=== PATIENT | female | born 1995 | race Hispanic/Latino ===

== ENCOUNTER → 2022-06-11 16:03 | Outpatient (CLI) | payer OTHER, SELFPAY ==
--- NOTE | 2022-06-11 16:05 | DI.US.S_ITS ---
PROCEDURE: US OB <= 14 WEEKS FETUS INDICATIONS: DATING AND VIABILITY OUTSIDE/PRIOR DATING DATA: Last menstrual period (LMP): 04/09/2022. LMP-based estimated date of delivery (BRITT): 01/14/2023. First dating scan (date and location): 06/11/2022. Estimated date of delivery (BRITT) from first dating scan: 01/08/2023. The calculations are made using the ultrasound BRITT of 01/08/2023. TECHNIQUE: Real-time scanning was performed of the fetus and maternal pelvic organs, with image documentation. Endovaginal scanning was also performed to better visualize the fetus and maternal ovaries. COMPARISON: None. FINDINGS: Embryo: [place]-rump length measuring 3 cm, gestational age 9 weeks 6 days Heart rate: 169 bpm No perigestational hemorrhage. A yolk sac is seen. Maternal organs: Ovaries are within normal limits. Probable left corpus luteum. IMPRESSION: 1. [place]iz living intrauterine at 9 weeks 6 days based on today's crown rump length. 2. No perigestational hemorrhage. We strive to produce accurate, complete, and clear reports of imaging services. To assist us in improving patient care, this report was composed using standard report templates and voice recognition software. Therefore, it may contain abnormal punctuation, insertions and/or omissions. Occasional wrong-word or sound-alike substitutions may occur. Though we review the report and make efforts to correct it, we do recommend that the report be read carefully in proper context to recognize any text inaccuracies. Dictated by: Arben Man M.D. on 06/14/2022 at 18:26 Approved by: Arben Man M.D. on 06/14/2022 at 18:28
== END ==
PROVIDERS: Referring Provider Obstetrics & Gynecology; Visit Provider Obstetrics & Gynecology
DX: Z34.01 Encounter for supervision of normal first pregnancy, first trimester (principal); Z3A.09 9 weeks gestation of pregnancy
CPT/HCPCS: 76801; 76817

== ENCOUNTER → 2022-07-02 13:42 | Outpatient (CLI) | payer OTHER, SELFPAY ==
[2022-07-02 19:49] LABS: Urine N gonorrhoeae NOT DETECTED
[2022-07-02 19:52] LABS: Urine Chlamydia NOT DETECTED
== END ==
PROVIDERS: Visit Provider Obstetrics & Gynecology
DX: Z34.01 Encounter for supervision of normal first pregnancy, first trimester (principal); Z3A.12 12 weeks gestation of pregnancy
CPT/HCPCS: 87491; 87591

== ENCOUNTER → 2022-07-02 14:53 | Outpatient (CLI) | payer OTHER, SELFPAY ==
[2022-07-02 15:36] LABS: Add Manual Diff / Slide Review NO; Basophils Absolute Auto 0 /uL (0-100); Basophils Percent Auto 0.2 % (0-2); Eosinophils Absolute Auto 0 /uL (0-450); Eosinophils Percent Auto 0.6 % (2-4); Hematocrit 36.2 % (36-46); Hemoglobin 12.3 g/dL (12.0-16.0); Lymphocytes Absolute Auto 2300 /uL (1100-4500); Lymphocytes Percent Auto 32.3 % (25-40); Mean Corpuscular Hemoglobin 30.6 PG (26-34); Mean Corpuscular Volume 89.8 fL (80-100); Monocytes Absolute Auto 500 /uL (0-900); Monocytes Percent Auto 6.9 % (3-14); Neutrophils Absolute Auto 4300 /uL (1500-7000); Platelet Count 214 X10^3/uL (150-400); Red Blood Cell Count 4.03 X10^6/uL (4.0-5.2); Red Cell Distribution Width 13.1 % (11.6-14.8); White Blood Cell Count 7.2 X10^3/uL (4.5-11.0)
[2022-07-02 15:52] LABS: Appearance Urine UA CLEAR; Bilirubin Urine UA NEGATIVE (NEGATIVE); Color Urine UA YELLOW; Glucose Urine UA NEGATIVE (Negative); Ketones Urine UA NEGATIVE (NEGATIVE); Leukocyte Esterase Urine UA NEGATIVE (NEGATIVE); Nitrite Urine UA NEGATIVE (Negative); Occult Blood Urine UA NEGATIVE (Negative); Protein Urine UA NEGATIVE (Negative); Specific Gravity Urine UA <=1.005 (1.000-1.035); Urobilinogen Urine UA 0.2 E.U./dL (0.2)
[2022-07-02 15:53] LABS: pH Urine UA 6.5 (4.5-8.0)
[2022-07-03 08:32] LABS: RPR Screen Non Reactive (Non Reactive)
[2022-07-03 10:16] LABS: Hepatitis B Surface Antigen NEGATIVE s/c (NEGATIVE)
[2022-07-03 10:33] LABS: HIV 1 & 2 Ab/Ag 4th Gen Combo NEGATIVE (NEGATIVE); Hep C Virus Ab w/Reflex Quant NEGATIVE s/c (NEGATIVE)
[2022-07-03 14:27] LABS: Rubella Antibody IgG 8.5 IU/mL (>15)
[2022-07-04 09:50] LABS: Varicella IgG Antibody 484 index (Immune >165)
== END ==
PROVIDERS: Referring Provider Obstetrics & Gynecology; Visit Provider Obstetrics & Gynecology
DX: Z34.01 Encounter for supervision of normal first pregnancy, first trimester (principal); Z3A.12 12 weeks gestation of pregnancy
CPT/HCPCS: 36415; 80055; 81003; 86787; 86803; 86850; 86900; 86901; 87086; 87389; 87491; 87591

== ENCOUNTER → 2022-07-24 08:30 | Outpatient (CLI) | payer OTHER, SELFPAY ==
[2022-07-26 19:25] LABS: AFP Value 32.9 ng/mL (.); Insulin Dep Diabetes No (.); OSBR Risk 1IN 10000 (.); Results Report (.); Test Results *Screen Negative* (.)
== END ==
PROVIDERS: Referring Provider Obstetrics & Gynecology; Visit Provider Obstetrics & Gynecology
DX: Z34.02 Encounter for supervision of normal first pregnancy, second trimester (principal); Z3A.16 16 weeks gestation of pregnancy
CPT/HCPCS: 36415; 82105

== ENCOUNTER → 2022-09-02 13:53 | Outpatient (CLI) | payer OTHER, SELFPAY ==
--- NOTE | 2022-09-02 13:56 | DI.US.S_ITS ---
PROCEDURE: US OB >= 14 WEEKS FETUS INDICATIONS: ANATOMY OUTSIDE/PRIOR DATING DATA: Last menstrual period (LMP): 04/09/2022 LMP-based estimated date of delivery (BRITT): 01/14/2023. First dating scan (date and location): 06/11/2022. Estimated date of delivery (BRITT) from first dating scan: 01/08/2023. TECHNIQUE: Real-time scanning was performed of the fetus, with image documentation and biometric measurements. COMPARISON: [facility], , OB <= 14 WEEKS FETUS, 07/02/2022, 14:36. FINDINGS: General: A single living intrauterine gestation is present. Presentation: Transverse. Placenta: Placental position is anterior , without previa. Amniotic fluid index: 16.5 cm, normal range is 5-24 cm. Single deepest vertical pocket is 6.5 cm. heart rate: 145 beats per minute. Maternal cervical canal: 4.9 cm long. Normal lower limit is 2.5 cm. biometrics: Biparietal diameter: 21 weeks 6 days Head circumference: 21 weeks 2 days Abdominal circumference: 22 weeks 1 day Femur length: 21 weeks 6 days Clinically estimated gestational age: 20 weeks 6 days Composite gestational age from present scan: 21 weeks 6 days Estimated weight and percentile: 467 g; 94th percentile Anatomic survey: Neuro: Ventricles are non-dilated at less than 10 mm. Cisterna magna is normal at 3-11 mm. Cerebellum is normal in size and morphology. Nuchal skin fold: Normal at less than 6 mm between 14-21 weeks gestational age. Face: Nose and lips, facial profile are normal. Spine: No evidence for spina bifida. Heart: 4-chambered heart is present, with normal ventricular outflow tracts. Diaphragm: Diaphragm is intact. Stomach: Left-sided stomach is present. Kidneys: No hydronephrosis. Normal is less than 5 mm in 2nd trimester, less than 7 mm in 3rd trimester. Cord: 3-vessel cord has orthotopic insertion. Bladder: Normal in size. Extremities: All 4 extremities identified. IMPRESSION: 1. Single living IUP redemonstrated and interval growth is upper limits of normal with estimated weight 94th percentile. 2. Normal anatomic survey. We strive to produce accurate, complete, and clear reports of imaging services. To assist us in improving patient care, this report was composed using standard report templates and voice recognition software. Therefore, it may contain abnormal punctuation, insertions and/or omissions. Occasional wrong-word or sound-alike substitutions may occur. Though we review the report and make efforts to correct it, we do recommend that the report be read carefully in proper context to recognize any text inaccuracies. Dictated by: Clifford MUNSON Interpreted: Chad Clinton MD on 09/02/2022 at 16:44 Transcribed by: ARMANDO on 09/02/2022 at 16:46 Approved by: Chad Clinton M.D. on 09/03/2022 at 8:49
== END ==
PROVIDERS: PCP Student in an Organized Health Care Education/Training Program; Referring Provider Obstetrics & Gynecology; Visit Provider Obstetrics & Gynecology
DX: Z34.02 Encounter for supervision of normal first pregnancy, second trimester (principal); Z3A.21 21 weeks gestation of pregnancy
CPT/HCPCS: 76811

== ENCOUNTER 2022-09-17 22:33 | Emergency (ER) | payer OTHER, SELFPAY ==
[2022-09-17] VITALS (8 sets, daily range): BP systolic 123–181; BP diastolic 86–104; PULSE 89–108; RESP 10–25; TEMP 37.2; O2SAT 95–99
[2022-09-17 23:26] LABS: Alanine Aminotransferase 30 IU/L (<35); Albumin 3.5 g/dL (3.5-5.0); Albumin Globulin Ratio 0.9 (1.0-2.8); Alkaline Phosphatase 75 U/L (38-126); Aspartate Aminotransferase 28 IU/L (14-36); BUN Creatinine Ratio 20.4 (6-22); Bilirubin Total 0.2 mg/dL (0.2-1.3); Blood Urea Nitrogen 10 mg/dL (7-17); Calcium 8.8 mg/dL (8.4-10.2); Carbon Dioxide 24 mmol/L (22-32); Chloride 103 mmol/L (98-107); Estimated Glomerular Filt Rate > 60 mL/min (>60); Globulin 3.7 g/dL (1.7-4.1); Glucose 97 mg/dL (70-100); HEMOLYSIS < 15 (0-50); Potassium 3.2 mmol/L (3.4-5.1); Sodium 133 mmol/L (137-145); Total Protein 7.2 g/dL (6.3-8.2)
[2022-09-17 23:41] LABS: Add Manual Diff / Slide Review NO; Basophils Absolute Auto 0 /uL (0-100); Basophils Percent Auto 0.3 % (0-2); Eosinophils Absolute Auto 100 /uL (0-450); Eosinophils Percent Auto 0.6 % (2-4); Hematocrit 35.6 % (36-46); Lymphocytes Absolute Auto 3300 /uL (1100-4500); Lymphocytes Percent Auto 30.5 % (25-40); Mean Corpuscular HGB Conc 33.8 % (30-36); Mean Corpuscular Hemoglobin 30.4 PG (26-34); Mean Corpuscular Volume 90.1 fL (80-100); Monocytes Absolute Auto 800 /uL (0-900); Neutrophils Absolute Auto 6700 /uL (1500-7000); Neutrophils Percent Auto 61.6 % (50-75); Platelet Count 202 X10^3/uL (150-400); Red Blood Cell Count 3.95 X10^6/uL (4.0-5.2); Red Cell Distribution Width 13.6 % (11.6-14.8); White Blood Cell Count 10.9 X10^3/uL (4.5-11.0)
[2022-09-17] MEDS: SODIUM CHLORIDE 0.9% 1,000 ML 1000 ML IV (23:42)
[2022-09-17 23:44] LABS: Appearance Urine UA CLEAR; Bilirubin Urine UA NEGATIVE (NEGATIVE); Color Urine UA YELLOW; Glucose Urine UA TRACE g/dL (Negative); Ketones Urine UA NEGATIVE (NEGATIVE); Leukocyte Esterase Urine UA TRACE (NEGATIVE); Nitrite Urine UA NEGATIVE (Negative); Occult Blood Urine UA NEGATIVE (Negative); Protein Urine UA NEGATIVE (Negative); Urobilinogen Urine UA 0.2 E.U./dL (0.2)
[2022-09-17 23:48] LABS: pH Urine UA 6.5 (4.5-8.0)
[2022-09-18] VITALS: BP 129/80; PULSE 88; RESP 21; O2SAT 97
[2022-09-18 00:15] VITALS: PULSE 89; RESP 22; O2SAT 98
[2022-09-18 00:23] LABS: Bacteria Urine Few (2-10); Culture Indicated Urine Specimen Cultured; RBC Urine None Seen (0-5/HPF); Squamous Epithelial Cell Urine 10-30 /HPF (0-5/HPF); WBC Urine 0-1/HPF (0-5/HPF)
--- NOTE | 2022-09-18 00:48 | ED.SYNCOPE ---
HPI - Syncope General Chief Complaint: Syncope Stated Complaint: passed out, dosen't remember Time Seen by Provider: 09/17/22 23:30 Source: patient and family Mode of arrival: Ambulatory Limitations: no limitations History of Present Illness HPI narrative: Patient is a 27-year-old female currently 24 weeks presenting after a syncopal episode. She reports that she was sitting down talking with a friend when she felt dizzy lightheaded like she might pass out then she did briefly lose consciousness for a couple of seconds. She is no abdominal pain no vaginal bleeding. She denies any chest pain or palpitations. No fever or back pain. She denies any UTI symptoms. Related Data Home Medications Medication Instructions Recorded Confirmed prenat.vits,nita,[id number] 1 tab PO DAILY 06/09/22 08/25/22 Previous Rx's Medication Instructions Recorded cephalexin 500 mg capsule 500 mg PO BID 7 days #14 caps 09/18/22 Allergies Allergy/AdvReac Type Severity Reaction Status Date / Time carolina seeds Allergy Severe Swelling Uncoded 08/25/22 13:03 of Lip/Tongue/Throat Review of Systems Review of Systems ROS Unobtainable: All systems reviewed & are unremarkable except as noted in HPI and below Patient History Medical History Bacterial vaginosis Migraine Ovarian cyst Surgical History [place] teeth extracted Family History Mother Thyroid cancer Father Hypertension Brain aneurysm Stroke Grandmother Diabetes mellitus Grandmother Hyperlipidemia Depression Grandfather Depression Social History marital status: unmarried,single number of children: 0 household members: none lives independently: Yes housing: apartment pets and animals: No education level: college ([employer]len's degree) occupational status: employed (active duty [employer]) current occupational exposures/hazards: No (No Hazmat duties since ) special rubina needs: No seatbelt use: always water heater temp set < 120 deg: Yes working smoke detector in home: Yes fire extinguisher in home: Yes carbon monox detector in home: Yes firearms in home: No do you feel safe at home: Yes Smoking Status: Never smoker second hand exposure: No alcohol intake: former (3-6/week prior to ) substance use type: does not use during the past year weight has: remained stable well-balanced diet: rarely or never daily servings fruits/ve-1 caffeine: Yes (aware of 200mg limit) Type(s) of exercise: weight lifting frequency: 3-4 times per week Smoking Status: Never smoker Substance Use Type: does not use Exam Initial Vital Signs Initial Vital Signs: Vital Signs Temperature 99 F 09/17/22 22:40 Pulse Rate 108 H 09/17/22 22:40 Respiratory Rate 18 09/17/22 22:40 Blood Pressure 168/104 H 09/17/22 22:40 Pulse Oximetry 99 09/17/22 22:40 Oxygen Delivery Method 09/17/22 22:40 GENERAL: Alert well-appearing 27-year-old female HEENT: Head atraumatic,EOMI, pupils reactive, face symmetric, moist mucous membranes CARDIOVASCULAR: Regular rate and rhythm without murmurs, rubs or gallops. RESPIRATORY: Breath sounds equal bilaterally, no wheezes rales or rhonchi. ABDOMEN: Soft, gravid nontender s EXTREMITIES: Normal range of motion, no clubbing or edema. Neurovascularly intact NEUROLOGICAL: Alert and oriented x4.Normal gait and speech. SKIN: Warm, dry, no laceration, no petechiae, no rashes or lesions. Course Orders Ordered: ED Orders 09/17/22 23:00 CBC Auto Diff [Complete Blood Count AUTO DIFF] Stat CMP [Comprehensive Metabolic Panel] Stat 09/17/22 23:25 Urinalysis and Microscopic Stat Urine Culture Stat 09/17/22 23:30 EKG-12 Lead Stat Discontinued Medications Cefazolin Sodium (Cephalexin 250 Mg Prepack) 1 bottle MISC SEEINSTR ONE Stop: 09/18/22 01:25 Last Admin: 09/18/22 01:38 Dose: 1 bottle Documented By: DALE Sodium Chloride (Normal Saline 0.9%) 1,000 mls @ 1,000 mls/hr IV BOLUS ONE Stop: 09/18/22 00:29 Last Admin: 09/17/22 23:42 Dose: 1,000 mls/hr Documented By: BOB Vital Signs Vital signs: Vital Signs - 8 hr 09/17/22 22:40 09/17/22 22:57 09/17/22 23:00 Temperature 99 F Pulse Rate 108 H 99 H 101 H Respiratory Rate 18 23 24 Blood Pressure 168/104 H Pulse Oximetry 99 98 98 Oxygen Delivery Method Room Air 09/17/22 23:15 09/17/22 23:28 09/17/22 23:28 Temperature Pulse Rate 95 H 92 H Respiratory Rate 24 10 L Blood Pressure 123/86 Pulse Oximetry 97 97 Oxygen Delivery Method 09/17/22 23:30 09/17/22 23:31 09/17/22 23:31 Temperature Pulse Rate 97 H 89 Respiratory Rate 25 H 17 Blood Pressure 181/86 H Pulse Oximetry 95 96 Oxygen Delivery Method 09/17/22 23:45 09/18/22 00:00 09/18/22 00:00 Temperature Pulse Rate 96 H 88 Respiratory Rate 19 21 Blood Pressure 129/80 Pulse Oximetry 96 97 Oxygen Delivery Method 09/18/22 00:15 09/18/22 01:29 Temperature Pulse Rate 89 88 Respiratory Rate 22 Blood Pressure 129/80 Pulse Oximetry 98 Oxygen Delivery Method MDM - Syncope Lab Data 09/17/22 23:00 09/17/22 23:00 Labs: Lab Results 09/17/22 09/17/22 09/17/22 Range/Units 23:00 23:00 23:25 WBC 10.9 (4.5-11.0) X10^3/uL RBC 3.95 L (4.0-5.2) X10^6/uL Hgb 12.0 (12.0-16.0) g/dL Hct 35.6 L (36-46) % MCV 90.1 (80-100) fL MCH 30.4 (26-34) PG MCHC 33.8 (30-36) % RDW 13.6 (11.6-14.8) % Plt Count 202 (150-400) X10^3/uL Neut % (Auto) 61.6 (50-75) % Lymph % (Auto) 30.5 (25-40) % Coal % (Auto) 7.0 (3-14) % Eos % (Auto) 0.6 L (2-4) % Baso % (Auto) 0.3 (0-2) % Neut # (Auto) 6700 (5358-5376) /uL Lymph # (Auto) 3300 (0732-6863) /uL Coal # (Auto) 800 (0-900) /uL Eos # (Auto) 100 (0-450) /uL Baso # (Auto) 0 (0-100) /uL Sodium 133 L (137-145) mmol/L Potassium 3.2 L (3.4-5.1) mmol/L Chloride 103 (98-107) mmol/L Carbon Dioxide 24 (22-32) mmol/L BUN 10 (7-17) mg/dL Creatinine 0.49 L (0.52-1.04) mg/dL Estimated GFR > 60 (>60) mL/min BUN/Creatinine Ratio 20.4 (6-22) Glucose 97 (70-100) mg/dL Calcium 8.8 (8.4-10.2) mg/dL Total Bilirubin 0.2 (0.2-1.3) mg/dL AST 28 (14-36) IU/L ALT 30 (<35) IU/L Alkaline Phosphatase 75 (38-126) U/L Total Protein 7.2 (6.3-8.2) g/dL Albumin 3.5 (3.5-5.0) g/dL Globulin 3.7 (1.7-4.1) g/dL Albumin/Globulin Ratio 0.9 L (1.0-2.8) Urine Color Yellow Urine Appearance Clear Urine pH 6.5 (4.5-8.0) Ur Specific [place] 1.020 (1.000-1.035) Urine Protein Negative (Negative) Urine Glucose (UA) Trace H (Negative) g/dL Urine Ketones Negative (NEGATIVE) Urine Occult Blood Negative (Negative) Urine Nitrate Negative (Negative) Urine Bilirubin Negative (NEGATIVE) Urine Urobilinogen 0.2 (0.2) E.U./dL Ur Leukocyte Esterase Trace H (NEGATIVE) Urine RBC None seen (0-5/HPF) Urine WBC 0-1/hpf (0-5/HPF) Ur Squamous Epith Cells 10-30 /hpf H (0-5/HPF) Urine Bacteria Few (2-10) H (None) Ur Culture Indicated? Specimen cultured Urine Dip Bedside Urine Glucose Negative Bedside Urine Bilirubin - Negative Bedside Urine Ketone - Negative Urine Specific [place] 1.020 Bedside Urine Occult Blood - Negative Bedside Urine pH 6.0 Bedside Urine Protein - Negative Bedside Urine Urobilinogen 0.2 Bedside Urine Nitrite - Negative Bedside Urine Leukocytes - Negative Esterase ECG Data Interpretation: Sinus rhythm rate 98 ME interval 132 QRS 74 QTC 444 T-wave inversion noted in lead 3 and V2 nonspecific no ST changes no Q-waves, no prior MDM Narrative Medical decision making narrative: Patient 27-year-old female currently does have bacteria in her urine probably the cause of her syncopal episode today. She has no neurologic deficits brief loss of consciousness. No need for head CT she is awake alert and oriented. Initially mildly tachycardic with low-grade temp of 99?. Blood pressure was quite high however it decreased pretty quickly and she has a record her blood pressure earlier today of 94. Quite variable blood pressure. She is no protein in her urine I do not suspect preeclampsia this time. Now feeling much better after L of fluid. Blood work otherwise overall reassuring. No evidence sepsis. Discharge Plan Departure Patient Disposition: Home Clinical Impression: UTI (urinary tract infection) during Instructions: DI for Urinary Tract Infection (UTI) Activity Restrictions/Additional Instructions: *You have been diagnosed with UTI *What to do: Bladder infections are very common in . Please be sure to stay hydrated drink plenty of fluids and take antibiotics. *Continue to take medications as directed Keflex 500 mg twice a day for 7 days --> SENT TO THE DOD Tylenol 1000 mg every 6 hours if needed for pain or fever *Follow up with your primary care provider in 2-3 days or call [phone] *Return to ER if you should have recurrent episode of passing out fever abdominal pain vaginal bleeding cramping or any new, worsening or concerning symptoms Prescriptions: New cephalexin 500 mg capsule 500 mg PO BID 7 Days Qty: 14 0RF No Action prenat.vits,nita,[id number] Tablet 1 tab PO DAILY Referrals: Juan Manuel Alexandra DO [Primary Care Provider] - Stand Alone Forms: Patient Portal/API
[2022-09-18 01:29] VITALS: BP 129/80; PULSE 88
[2022-09-18] MEDS: cephALEXin 250 MG PREPACK 1 BOTTLE MISC (01:38)
== END 2022-09-18 01:40 | disposition home or self-care (01) ==
PROVIDERS: Emergency Provider Emergency Medicine; PCP Student in an Organized Health Care Education/Training Program
DX: O23.42 Unspecified infection of urinary tract in pregnancy, second trimester (principal); N39.0 Urinary tract infection, site not specified; R07.9 Chest pain, unspecified; Z3A.24 24 weeks gestation of pregnancy
CPT/HCPCS: 36415; 80053; 81001; 81003; 85025; 87086; 93005; 99284

== ENCOUNTER → 2022-09-22 12:03 | Outpatient (CLI) | payer OTHER, SELFPAY ==
[2022-09-22 13:54] LABS: Hematocrit 34.8 % (36-46); Hemoglobin 11.9 g/dL (12.0-16.0)
[2022-09-22 14:16] LABS: GTT (PREG) 1 Hour PP 50gm Dose 91 mg/dL (76-139)
== END ==
PROVIDERS: PCP Student in an Organized Health Care Education/Training Program; Referring Provider Obstetrics & Gynecology; Visit Provider Obstetrics & Gynecology
DX: Z34.02 Encounter for supervision of normal first pregnancy, second trimester (principal); Z3A.26 26 weeks gestation of pregnancy
CPT/HCPCS: 36415; 82950; 85014; 85018

== ENCOUNTER 2022-12-16 12:43 | Outpatient (CLI) | payer OTHER, SELFPAY ==
[2022-12-16 13:14] LABS: Appearance Urine UA CLEAR; Bilirubin Urine UA NEGATIVE (NEGATIVE); Color Urine UA YELLOW; Glucose Urine UA 1+ g/dL (Negative); Ketones Urine UA NEGATIVE (NEGATIVE); Leukocyte Esterase Urine UA 2+ (NEGATIVE); Nitrite Urine UA NEGATIVE (Negative); Occult Blood Urine UA NEGATIVE (Negative); Protein Urine UA NEGATIVE (Negative); Urobilinogen Urine UA 0.2 E.U./dL (0.2)
[2022-12-16 13:33] LABS: Bacteria Urine Occasional (0-1); Culture Indicated Urine Specimen Cultured; RBC Urine None Seen (0-5/HPF); Squamous Epithelial Cell Urine 5-10 /HPF (0-5/HPF); WBC Urine 5-10/HPF (0-5/HPF)
--- NOTE | 2022-12-16 13:40 | PM.OBTRLD ---
Visit Information Visit Information Date of evaluation: 12/16/22 Primary OB Provider: Abhijit Lincoln Reason for Evaluation: Yes rule out labor Comments/Additional reasons for admission: Patient is a 27 yo G1 at 36+5 wks EGA who has been having cramping/contractions since this AM. Denies ROM, bleeding. Contractions 03/26. Vital Signs Vital Signs: BP: 123/79 P: 110 T: 97.5F PFSH Medical History Bacterial vaginosis Migraine Ovarian cyst Surgical History [place] teeth extracted Family History Mother Thyroid cancer Father Hypertension Brain aneurysm Stroke Grandmother Diabetes mellitus Grandmother Hyperlipidemia Depression Grandfather Depression Social History marital status: unmarried,single number of children: 0 household members: none lives independently: Yes housing: apartment pets and animals: No education level: college ([employer]'s degree) occupational status: employed (active duty [employer]) current occupational exposures/hazards: No (No Hazmat duties since ) special rubina needs: No seatbelt use: always water heater temp set < 120 deg: Yes working smoke detector in home: Yes fire extinguisher in home: Yes carbon monox detector in home: Yes firearms in home: No do you feel safe at home: Yes Smoking Status: Never smoker second hand exposure: No alcohol intake: former (3-6/week prior to ) substance use type: does not use during the past year weight has: remained stable well-balanced diet: rarely or never daily servings fruits/ve-1 caffeine: Yes (aware of 200mg limit) Type(s) of exercise: weight lifting frequency: 3-4 times per week Review of Systems Review of Systems Narrative: Problem-specific ROS positives included in HPI Objective Labs Labs: Laboratory Results - last 24 hr 12/16/22 13:00 Urine Color Yellow Urine Appearance Clear Urine pH 6.0 Ur Specific [place] 1.010 Urine Protein Negative Urine Glucose (UA) 1+ H Urine Ketones Negative Urine Occult Blood Negative Urine Nitrate Negative Urine Bilirubin Negative Urine Urobilinogen 0.2 Ur Leukocyte Esterase 2+ H Urine RBC None seen Urine WBC 5-10/hpf H Ur Squamous Epith Cells 5-10 /hpf H Urine Bacteria Occasional (0-1) Ur Culture Indicated? Specimen cultured Evaluation Evaluation Baseline heart rate: 140 Variability: Moderate (11-25) monitor accelerations: Present Monitor Decelerations: Absent Contraction Frequency (minutes): 4 Uterine Contraction Intensity: Moderate Category of Tracing: Reactive Status: Category l Comments: Cervical exam not performed by nursing staff prior to discharge Diagnosis, Plan/Disposition Final Diagnosis (1) uterine contractions in third trimester, antepartum: Status: Acute Plan/Disposition Plan: Contractions seen on monitoring are largely uterine irritability with occasional palpable contractions. Offered medication to help with the pain of prodromal labor but declined by patient. Urine shows 2+ WBC; culture planted and will initiate Macrobid BID x 7 days pending C&S results. Home w/ labor instructions and follow-up as planned on 12/19 or as needed with increased contractions, show, or SROM. OB Disposition: home
== END 2022-12-16 14:00 | disposition home or self-care (01) ==
LOC: LABOR 13:39 → OB 12-19 14:24
PROVIDERS: PCP Student in an Organized Health Care Education/Training Program; Referring Provider Obstetrics & Gynecology; Visit Provider Obstetrics & Gynecology
DX: O47.03 False labor before 37 completed weeks of gestation, third trimester (principal); Z3A.36 36 weeks gestation of pregnancy
CPT/HCPCS: 59025; 81001; 87086; G0378; G0379

== ENCOUNTER → 2022-12-19 13:37 | Outpatient (CLI) | payer OTHER, SELFPAY ==
[2022-12-20 15:02] LABS: Strep Grp B PCR POS for Grp B Strep
== END ==
PROVIDERS: PCP Student in an Organized Health Care Education/Training Program; Visit Provider Obstetrics & Gynecology
DX: Z34.03 Encounter for supervision of normal first pregnancy, third trimester (principal); Z3A.37 37 weeks gestation of pregnancy
CPT/HCPCS: 87086; 87653

== ENCOUNTER → 2022-12-19 13:59 | Outpatient (CLI) | payer OTHER, SELFPAY ==
--- NOTE | 2022-12-19 14:00 | DI.US.S_ITS ---
PROCEDURE: US OB FOLLOW UP INDICATIONS: LARGE FOR GESTATIONAL AGE ON 20 WEEK ANATOMY OUTSIDE/PRIOR DATING DATA: Last menstrual period (LMP): 04/09/22 LMP-based estimated date of delivery (BRITT): 01/14/23. First dating scan (date and location): 06/11/22. Estimated date of delivery (BRITT) from first dating scan: 01/08/23. The calculations are made using the 1st BRITT of 01/08/23. TECHNIQUE: Real-time scanning was performed of the fetus, with image documentation and biometric measurements. Endovaginal scanning: Not needed COMPARISON: None. FINDINGS: General: A single living intrauterine gestation is present. Presentation: Vertex. Placenta: Placental position is anterior , without previa. Amniotic fluid index: 13.9 cm, normal range is 5-24 cm. Single deepest vertical pocket is 5.7 cm. heart rate: 141 beats per minute. Maternal cervical canal: Not visualized. biometrics: Biparietal diameter: 8.8 cm, 35 weeks 5 days Head circumference: 31.8 cm, 35 weeks 6 days Abdominal circumference: 37.7 cm, 41 weeks 5 days Femur length: 6.8 cm, 35 weeks 0 days Clinically estimated gestational age: 37 weeks 1 day Composite gestational age from present scan: 37 weeks 1 day Estimated weight and percentile: 3624 g, 93rd percentile Other: Not applicable. IMPRESSION: Current weight is 3624 g, the 93rd percentile for current gestational age. The OB ultrasound 09/02/22 had identified a 94% gestational weight at that time. Therefore, macrosomia is not anticipated by this study. No anomaly seen, delivery date projected to be centered on 01/08/23, +/-5 days. We strive to produce accurate, complete, and clear reports of imaging services. To assist us in improving patient care, this report was composed using standard report templates and voice recognition software. Therefore, it may contain abnormal punctuation, insertions and/or omissions. Occasional wrong-word or sound-alike substitutions may occur. Though we review the report and make efforts to correct it, we do recommend that the report be read carefully in proper context to recognize any text inaccuracies. Dictated by: Marco Escamilla M.D. on 12/19/2022 at 16:29 Approved by: Marco Escamilla M.D. on 12/19/2022 at 16:33
== END ==
PROVIDERS: PCP Student in an Organized Health Care Education/Training Program; Referring Provider Obstetrics & Gynecology; Visit Provider Obstetrics & Gynecology
DX: O26.843 Uterine size-date discrepancy, third trimester (principal); Z3A.37 37 weeks gestation of pregnancy
CPT/HCPCS: 76816; 87086; 87653

== ENCOUNTER → 2022-12-26 13:39 | Outpatient (CLI) | payer OTHER, SELFPAY | PROVIDERS: PCP Student in an Organized Health Care Education/Training Program; Visit Provider Obstetrics & Gynecology | DX: R82.90 Unspecified abnormal findings in urine (principal); Z34.90 Encounter for supervision of normal pregnancy, unspecified, unspecified trimester | CPT/HCPCS: 87086 ==

== ENCOUNTER → 2023-01-01 08:28 | Outpatient (CLI) | payer OTHER, SELFPAY | PROVIDERS: PCP Student in an Organized Health Care Education/Training Program; Visit Provider Obstetrics & Gynecology | DX: Z34.03 Encounter for supervision of normal first pregnancy, third trimester (principal); Z3A.39 39 weeks gestation of pregnancy | CPT/HCPCS: 87086 ==

== ENCOUNTER 2023-01-05 21:51 | Inpatient (IN) | payer OTHER, SELFPAY ==
[2023-01-05 23:13] VITALS: BP 123/74
[2023-01-06] MEDS: LACTATED RINGERS 1,000 ML 100 ML IV ×6 (01:20→20:22)
[2023-01-06] MEDS: AMPICILLIN 2,000 MG in SODIUM CHLORIDE 0.9% 100 ML 200 MG IV (01:20)
[2023-01-06 02:44] LABS: Add Manual Diff / Slide Review NO; Basophils Absolute Auto 0 /uL (0-100); Basophils Percent Auto 0.2 % (0-2); Eosinophils Absolute Auto 100 /uL (0-450); Eosinophils Percent Auto 1.3 % (2-4); Hematocrit 35.9 % (36-46); Hemoglobin 12.2 g/dL (12.0-16.0); Lymphocytes Absolute Auto 3000 /uL (1100-4500); Lymphocytes Percent Auto 32.9 % (25-40); Mean Corpuscular HGB Conc 33.9 % (30-36); Mean Corpuscular Hemoglobin 31.1 PG (26-34); Mean Corpuscular Volume 91.9 fL (80-100); Monocytes Absolute Auto 700 /uL (0-900); Monocytes Percent Auto 7.4 % (3-14); Neutrophils Absolute Auto 5300 /uL (1500-7000); Neutrophils Percent Auto 58.2 % (50-75); Platelet Count 184 X10^3/uL (150-400); Red Blood Cell Count 3.91 X10^6/uL (4.0-5.2); Red Cell Distribution Width 14.1 % (11.6-14.8)
[2023-01-06] MEDS: AMPICILLIN 1,000 MG in SODIUM CHLORIDE 0.9% 100 ML 200 MG IV ×3 (05:20→13:24)
--- NOTE | 2023-01-06 07:38 | P.HPOB_ITS ---
OB HPI Date/Time Date of admission: 01/05/23 Date Patient Seen: 01/06/23 Time Patient Seen: 07:38 History of Present Condition Chief complaint: IUP, 39+5 wks EGA, LGA, SROM, + GBS status : 1 Para: 3 Estimated Date of Delivery: 01/08/23 Estimated Gestational Age (weeks): 39+5 Narrative: Katherin Arnold is a 27 year old primigravida who presented on the evening of 01/05/2023 with spontaneous rupture membranes earlier that evening. Intravenous penicillin therapy initiated and at the time of this dictation, the patient has received 3 doses in labor. course has been largely uneventful with the exception that the infant is LGA with her most recent pelvic ultrasound on 12/19/2022 showing the 's estimated weight is 3624 g (93rd percentile). Since spontaneous rupture membranes, patient has started having more active contractions with the cervix dilated now to approximately 6 cm. Pat ient's dating is firm and she has met appropriate milestones throughout her . GBS is positive. History of Present Ultrasounds: normal 1st trimester US Obstetrical complications: other (Large for gestational age) Medical complications: none Preadmission Labs Blood type: A (+) positive -: Antibody screen: negative, GBS status: positive, HBsAG: negative, HIV: negative and RPR/VDLR: negative -: Chlamydia screen: not detected and Gonorrhea screen: not detected -: Rubella: not immune and Varicella: immune HCT: 35.9 HCAB: negative PAP: Normal Quad screen: Normal (AFP testing negative for open neural tube defect) Cell-free DNA: Low risk female infant 1 hr GTT: 91 Evaluation Evaluation Baseline heart rate: 145 Variability: Moderate (11-25) monitor accelerations: Present Monitor Decelerations: Absent Contraction Frequency (minutes): 5 Uterine Contraction Intensity: Moderate Category of Tracing: Reactive Status: Category l Dilation (cm): 6 Effacement (%): 90 Dilation: >/=5 cm Effacement: >/=80% station: -1 Position of cervix: mid Consistency: soft Baker score: 11 Non-invasive Membranes Rupture Test: positive PFSH Medical History Bacterial vaginosis Migraine Ovarian cyst Surgical History [place] teeth extracted Family History Mother Thyroid cancer Father Hypertension Brain aneurysm Stroke Grandmother Diabetes mellitus Grandmother Hyperlipidemia Depression Grandfather Depression Social History marital status: unmarried,single number of children: 0 household members: none lives independently: Yes housing: apartment pets and animals: No education level: college ([employer] degree) occupational status: employed (active duty [employer]) current occupational exposures/hazards: No (No Hazmat duties since ) special rubina needs: No seatbelt use: always water heater temp set < 120 deg: Yes working smoke detector in home: Yes fire extinguisher in home: Yes carbon monox detector in home: Yes firearms in home: No do you feel safe at home: Yes Smoking Status: Never smoker second hand exposure: No alcohol intake: former (3-6/week prior to ) substance use type: does not use during the past year weight has: remained stable well-balanced diet: rarely or never daily servings fruits/ve-1 caffeine: Yes (aware of 200mg limit) Type(s) of exercise: weight lifting frequency: 3-4 times per week Meds Home Medications and Allergies Home Medications Medication Instructions Recorded Confirmed Type prenat.vits,nita,[id number] 1 tab PO DAILY 06/09/22 01/06/23 History Allergies Allergy/AdvReac Type Severity Reaction Status Date / Time carolina seeds Allergy Severe Swelling Uncoded 01/01/23 08:02 of Lip/Tongue/Throat Review of Systems Review of Systems Narrative: Problem-specific ROS positives included in HPI OB Exam Vital signs Blood Pressure: 125/79 Pulse Rate: 97 Temperature: 97.8 F HENMT Head: normal to inspection, normocephalic and atraumatic Eyes General: appearance normal, both eyes and all related structures Resp Effort & Inspection: normal respiratory effort Auscultation: clear to auscultation bilaterally Cardio Rate: regular rate Rhythm: regular rhythm Heart Sounds: S1 normal, S2 normal and no murmurs Extremities Lower extremity: Yes normal to inspection GI Inspection: normal to inspection Palpation: Yes soft and Yes no hepatosplenomegaly External Female Exam: Yes normal external appearance Uterus Location (Fundal Height): 37 Presentation: vertex Estimated Weight (lbs): 8 Objective Labs 01/06/23 02:24 Labs: Laboratory Results - last 24 hr 01/06/23 01/06/23 02:24 02:24 WBC 9.0 RBC 3.91 L Hgb 12.2 Hct 35.9 L MCV 91.9 MCH 31.1 MCHC 33.9 RDW 14.1 Plt Count 184 Neut % (Auto) 58.2 Lymph % (Auto) 32.9 [place] % (Auto) 7.4 Eos % (Auto) 1.3 L Baso % (Auto) 0.2 Neut # (Auto) 5300 Lymph # (Auto) 3000 [place] # (Auto) 700 Eos # (Auto) 100 Baso # (Auto) 0 Blood Type A Positive Antibody Screen Negative Assessment and Plan Assessment and Plan Assessment and Plan narrative: PLAN 1. Admit for labor 2. GBS prophylaxis 3. See admission orders
[2023-01-06] MEDS: FENT 2MCG/ML BUPIV 0.125% EPI 200 MCG/100 ML PLAST..BAG 8 MCG EPIDURAL (08:01)
[2023-01-06] MEDS: OXYTOCIN PREMIX 30 UNIT/500 ML PLAST..BAG IV (08:02)
--- NOTE | 2023-01-06 12:56 | PM.OBPNLAB ---
Date/Time Date Patient Seen: 01/06/23 Time Patient Seen: 12:56 Pain Control Pain control: tolerating well and epidural Pelvic Exam Dilation (cm): 8 station: 0 Amniotic membrane status: Ruptured Comments: JACK forewatertaco, 1248 Contractions Contractions on admission: irregular Monitor mode: External Pitocin rate (mU/min): 9 Contraction frequency (min): 3 Contraction duration (min): 1 Contraction pattern: Regular Contraction phase: Resting Contraction intensity: Strong/Firm Status status: Category l Heart Rate Baseline: 145 Monitor Accelerations: Episodic Monitor Decelerations: Absent Monitor Variability: Moderate Assessment and Plan Assessment: active labor Plan: continuous present management Comments: ELINA providing some slightly improved relief with higher basal rate but will ask anesthesia to re-evaluate for possible replacement if indicated. Anticipate transition to 2nd stage shortly and .
[2023-01-06 13:20] VITALS: BP 125/79; PULSE 97; TEMP 36.6
[2023-01-06] MEDS: FENT 2MCG/ML BUPIV 0.125% EPI 200 MCG/100 ML PLAST..BAG 12 MCG EPIDURAL (13:25)
--- NOTE | 2023-01-06 17:30 | P.PNOB_ITS ---
Date/Time Date Patient Seen: 01/06/23 Time Patient Seen: 17:30 Pain Control Pain control: tolerating well and epidural Pelvic Exam Dilation (cm): 10 Effacement (%): 100 station: +2 Amniotic membrane status: Ruptured Contractions Contractions on admission: none Monitor mode: External Pitocin rate (mU/min): 8 Contraction frequency (min): 3 Contraction duration (min): 1 Contraction pattern: Regular Contraction phase: Resting Contraction intensity: Moderate Status status: Category l Heart Rate Baseline: 165 Monitor Accelerations: Present Monitor Decelerations: Early and Variable Monitor Variability: Minimal Assessment and Plan Assessment: active labor Plan: other (See below) Comments: Patient has been pushing ineffectively x 90 minutes and baseline has risen to 165. No maternal fever. Vertex is +1-2. Will stop pitocin due to t achysystole and reassess re: options for delivery. Dr. Bates is assuming call responsibilities overnight and she was briefed on patient's history as well as her clinical course thus far in labor.
--- NOTE | 2023-01-06 18:32 | PM.OBPNLAB ---
Date/Time Date Patient Seen: 01/06/23 Time Patient Seen: 18:32 Pain Control Pain control: other (Patient very uncomfortable with contractions) Pelvic Exam Dilation (cm): 10 Effacement (%): 100 station: 0 (without pushing, head back to 0 station) Amniotic membrane status: Ruptured Contractions Monitor mode: External Pitocin rate (mU/min): 6 Contraction frequency (min): 3 Contraction duration (min): 1 Contraction pattern: Regular Contraction phase: Resting Contraction intensity: Strong/Firm Status status: Category l Heart Rate Baseline: 160 Monitor Accelerations: Absent Monitor Decelerations: Variable Monitor Variability: Minimal Assessment and Plan Assessment: other ( intolerance of labor, Stage 2 arrest of labor) Plan: Comments: Assessment: 27-year-old 1 para 0 at 39-,5/7 weeks gestation with a rpopk-ubr-pdkvllryolg-age infant, with abdominal circumference at the ninety-third percentile 3 weeks ago and estimated gestational age 3 weeks ago 8 lb. Stage II arrest of labor at 0 station Caput comes to +2 with pushing but then head retracted back into the pelvis Nonreassuring heart rate tracing Plan: After discussion with the patient, , and anesthesiology medical doctor, regarding the options of a forceps assisted delivery versus a section discussing the risks and benefits of both, the patient and her have decided on a primary low-transverse section. The risks, benefits, and alternatives to the procedure were explained to the patient. The risks including bleeding, infection, injury to the bowel, bladder, or ureters. She understands these risks and agrees to proceed. A full par Q was held and consent form was signed.
[2023-01-06] MEDS: fentaNYL 100 MCG/2 ML INJ 50 MCG IV ×2 (18:46→19:02)
[2023-01-06] MEDS: CEFAZOLIN 2 GM/100 ML PREMIX 100 ML IV (19:19)
--- NOTE | 2023-01-06 20:02 | SUR.OPER ---
Supine on Padded OR bed, head on pillow, safety belt at thigh, arms secured on padded arm boards at <90 degrees abduction. Bump under right buttock. Legs uncrossed with pillow under knees, gel pad to heels, tape over blanket to lower legs.
--- NOTE | 2023-01-06 20:12 | SUR.OPER ---
viable baby girl born at 1947, placenta delivered at 1950, 9/9, wt. [id number], cord blood and placenta given to OB RN
[2023-01-06 20:27] VITALS: BP 84/44; PULSE 96; RESP 15; TEMP 36.2; O2SAT 96
[2023-01-06 20:32] VITALS: BP 90/59; PULSE 96; RESP 13; O2SAT 93
[2023-01-06 20:37] VITALS: BP 95/45; PULSE 94; RESP 11; O2SAT 93
--- NOTE | 2023-01-06 20:38 | P.OP_ITS ---
Operative Date/Time/Diagnoses Date of procedure: 01/06/23 Time of procedure: 20:39 Pre-op diagnosis: 39+5 wks gestation intolerance of labor Stage 2 arrest of labor Post-op diagnosis: same Procedure & Clinicians Procedure: Primary Low Transverse C section Same procedure as scheduled: Yes Indications: intolerance of labor Stage II arrest of labor Surgeon: Emily Sanders Yes if Unassisted: No Diesel Pile Hammer Operator: Lynda Mackey Reason for Diesel Pile Hammer Operator: The ophthalmic surgical assistant was necessary to retract upon entry into the abdomen and uterus. She assisted with fundal pressure on delivery of the . She assisted with closure with retraction and clipping of suture. She closed the contralateral fascia. Anesthesia Type: Spinal (With Duramorph) Operative Notes Findings: Live female infant in the LOT presentation Normal uterus, tubes, and ovaries Cord pH venous 7.162 Closure Type: primary Specimen(s): cord blood, cord pH and placenta Intraoperative meds administered: Duramorph, Ketorolac and Pitocin Applied: Catheter (To continuous drainage) Estimated Blood Loss (mL): 500 Blood products transfused: none Procedure in detail: The patient was taken to the operating room where she was placed in the seated position. Spinal anesthesia was administered. She was then placed in the dorsal supine position with a leftward tilt. She was prepped and draped in the usual sterile fashion. A timeout was performed. After spinal analgesia was found to be adequate, a Pfannenstiel skin incision was made 2 fingerbreadths above the pubic symphysis and carried through to the underlying layer fascia. The fascia was nicked in the midline, and the incision extended bilaterally with the Beach scissors. The superior aspect of the fascial incision was grasped with a Palmer clamps, elevated, and the underlying rectus muscles dissected off sharply and bluntly. Attention was then turned to the inferior aspect of this incision which in a similar fashion was grasped with a Idris clamps, elevated, and the underlying rectus muscles dissected off sharply and bluntly. The rectus muscles were in the midline. The peritoneum was identified, grasped between 2 hemostats, and entered sharply with the Metzenbaum scissors. This incision was extended superiorly and inferiorly with good visualization of the bladder. The bladder blade was inserted. The vesicouterine peritoneum was identified, grasped with the pickup, and entered sharply with the Metzenbaum scissors. This incision was extended bilaterally, and the bladder flap was created digitally. The bladder blade was reinserted. The lower uterine segment was incised in a transverse fashion with the scalpel. Upon entering the amniotic sac there was a small amount of clear amniotic fluid. The 's head was delivered without difficulty. The nose and mouth were suctioned with bulb suction. The remainder of the body delivered without difficulty. The cord was double clamped and cut. A piece of cord for cord pH was obtained. Cord bloods were obtained. The was handed off to waiting RN, gleason gear generator, and RT. The placenta was delivered manually. The uterus was cleared of all clots and debris. The uterine incision was repaired with #1 chromic in a running interlocking fashion, and a second layer the same suture was used for an imbricating layer. Hemostasis was achieved. The tubes and ovaries were examined and were found to be normal. The gutters were cleared of all clots and debris. The bladder flap was reapproximated using 2-0 Vicryl in a running fashion. The parietal peritoneum was closed using 2-0 Vicryl in a running fashion. The fascia was reapproximated using 0 Vicryl in a running fashion. The subcutaneous layer was copiously irrigated with warm normal saline. 5 simple interrupted sutures of 3-0 Vicryl were placed to reapproximate the subcutaneous layer. The skin was closed with 4-0 Monocryl in a subcuticular fashion. Steri-Strips were placed. An Aquacel dressing was placed. The uterus was expressed of a small amount of old blood. Sponge, lap, and instrument counts were correct x-2. The patient tolerated the procedure well, and was taken to PACU in stable condition. Complications: none [place] Baby 1: Infant Gender: Female Presentation: vertex Position: Left Occiput Transverse Placental Delivery Description: Manual Removal Cord Vessel Description: 3 Vessels score (1 min): 9 score (5 min): 9 weight: 8 lb 10 oz Post-operative Condition: stable Disposition: PACU Aftercare: routine postop
[2023-01-06 20:41] VITALS: BP 90/52; PULSE 90; RESP 11; O2SAT 93
[2023-01-07] MEDS: ACETAMINOPHEN 325 MG TABLET 650 MG PO ×4 (00:01→18:57)
[2023-01-07] MEDS: KETOROLAC 30 MG/ML VIAL IV ×3 (02:29→15:35)
[2023-01-07 05:22] VITALS: BP 121/78; PULSE 63; RESP 18; TEMP 36.8
[2023-01-07 06:35] LABS: Add Manual Diff / Slide Review NO; Basophils Absolute Auto 100 /uL (0-100); Basophils Percent Auto 0.3 % (0-2); Eosinophils Absolute Auto 0 /uL (0-450); Eosinophils Percent Auto 0.1 % (2-4); Hematocrit 29.2 % (36-46); Hemoglobin 10.1 g/dL (12.0-16.0); Lymphocytes Absolute Auto 3100 /uL (1100-4500); Lymphocytes Percent Auto 18.2 % (25-40); Mean Corpuscular HGB Conc 34.7 % (30-36); Mean Corpuscular Hemoglobin 31.5 PG (26-34); Mean Corpuscular Volume 90.8 fL (80-100); Monocytes Absolute Auto 1200 /uL (0-900); Monocytes Percent Auto 7.3 % (3-14); Neutrophils Absolute Auto 12600 /uL (1500-7000); Neutrophils Percent Auto 74.1 % (50-75); Platelet Count 160 X10^3/uL (150-400); Red Blood Cell Count 3.22 X10^6/uL (4.0-5.2); Red Cell Distribution Width 13.9 % (11.6-14.8); White Blood Cell Count 17.1 X10^3/uL (4.5-11.0)
[2023-01-07] MEDS: PRENATAL VIT,CALC/IRON/FOLIC 1 TABLET 1 TAB PO (09:02)
--- NOTE | 2023-01-07 13:19 | PM.OBPN.1 ---
Subjective - OB Subjective Patient comments: no complaints, pain well controlled, incisional pain, tolerating diet and flatus present baby status: doing well [place] feeding status: exclusively breast feeding Narrative: Mother and baby both doing well. Date Patient Seen: 01/07/23 Time Patient Seen: 13:19 Exam Vital Signs (past 8 hours): Oxygen Delivery Method Room Air Const General: cooperative and comfortable Nutritional Appearance: average body habitus Orientation: alert and oriented x3 HENMT Head: normal to inspection, atraumatic and abrasion Ears: hearing grossly normal bilaterally Face and sinus: face symmetric Eyes General: appearance normal, both eyes and all related structures Conjunctivae: conjunctivae normal Sclera: sclerae normal EOM: EOM intact bilaterally Neck Neck: normal visual inspection Resp Effort & Inspection: normal respiratory effort and able to speak in complete sentences Auscultation: clear to auscultation bilaterally Cardio Rate: regular rate Rhythm: regular rhythm Heart Sounds: S1 normal, S2 normal and no murmurs GI Inspection: normal to inspection and incision (Surgical dressing clean and dry) Palpation: soft, no hepatosplenomegaly and tender (Mild, diffuse postsurgical tenderness) Auscultation: hypoactive bowel sounds External Female Exam: other (No significant bleeding noted) Uterus Location (Fundal Height): 18 Extrem General: no calf tenderness Psych Appearance: grossly normal Mental Status: mental status grossly normal Speech and Movement: speech and movement normal Mood: congruent mood Affect: normal affect Attitude: cooperative Thought Process: normal Thought Content: normal Judgment: judgment good Objective Labs 01/07/23 06:19 Labs: Laboratory Results - last 24 hr 01/07/23 06:19 WBC 17.1 H D RBC 3.22 L Hgb 10.1 L Hct 29.2 L MCV 90.8 MCH 31.5 MCHC 34.7 RDW 13.9 Plt Count 160 Neut % (Auto) 74.1 Lymph % (Auto) 18.2 L [place] % (Auto) 7.3 Eos % (Auto) 0.1 L Baso % (Auto) 0.3 Neut # (Auto) 05916 H Lymph # (Auto) 3100 Dolores # (Auto) 1200 H Eos # (Auto) 0 Baso # (Auto) 100 Assessment & Plan Plan day: 1 plan OB: routine postop care Comments: Anticipate discharge in a.m. Time Spent With Patient Time: Total time spent is greater than 50% in coordination of care (as documented) at patient's floor/unit and/or counseling patient: Time with patient: 15-24 minutes
--- NOTE | 2023-01-07 19:00 | PM.OBPN.1 ---
Subjective - OB Subjective Patient comments: no complaints, pain well controlled and tolerating diet baby status: doing well and nursing well feeding status: exclusively breast feeding Date Patient Seen: 01/07/23 Time Patient Seen: 19:00 Interval history: Postop day # 1 status post primary low-transverse section. going well. Patient has showered. The catheter is out and she is voided. Bleeding is tapering. Exam Vital Signs (past 8 hours): Oxygen Delivery Method Room Air Narrative Exam Narrative: Generally: Patient is sitting up in bed, holding , no acute distress Lungs: Clear to auscultation bilaterally Cardiovascular: Regular rate and rhythm Fundus: Firm at U -1 Extremities: Trace edema, negative Homans Objective Labs 01/07/23 06:19 Labs: Laboratory Results - last 24 hr 01/07/23 06:19 WBC 17.1 H D RBC 3.22 L Hgb 10.1 L Hct 29.2 L MCV 90.8 MCH 31.5 MCHC 34.7 RDW 13.9 Plt Count 160 Neut % (Auto) 74.1 Lymph % (Auto) 18.2 L [place] % (Auto) 7.3 Eos % (Auto) 0.1 L Baso % (Auto) 0.3 Neut # (Auto) 90516 H Lymph # (Auto) 3100 [place] # (Auto) 1200 H Eos # (Auto) 0 Baso # (Auto) 100 Assessment & Plan Plan day: 1 plan OB: routine postop care Time Spent With Patient Time: Total time spent is greater than 50% in coordination of care (as documented) at patient's floor/unit and/or counseling patient: Time with patient: 15-24 minutes
[2023-01-07] MEDS: IBUPROFEN 600 MG TABLET PO (21:30)
[2023-01-08] MEDS: ACETAMINOPHEN 325 MG TABLET 650 MG PO ×3 (00:48→15:24)
[2023-01-08] MEDS: DOCUSATE 100 MG CAPSULE PO ×2 (01:32→14:21)
[2023-01-08] MEDS: IBUPROFEN 600 MG TABLET PO ×3 (04:04→15:25)
--- NOTE | 2023-01-08 08:08 | PM.OBDS.1 ---
Discharge Providers Provider Date of admission: 01/05/23 21:51 Discharge Date: 01/08/23 Primary care physician: Juan Manuel Alexandra MD Consults: 01/06/23 00:40 Consult to Anesthesiology Urgent Comment: Consulting Provider: Anesthesiologist Reason for consultation: Epidural 01/06/23 21:22 Consult to Set Up Operator Tool Routine Comment: Discharge provider: Abhijit Lincoln MD Summary Hospital Course Date Patient Seen: 01/08/23 Time Patient Seen: 08:09 Diagnoses: Intrauterine gestation, [place], 39+ 5 weeks gestational age, delivered by primary section macrosomia intolerance of labor GBS positive status Hospital Course: Katherin was admitted on the evening of 01/05/2023 with spontaneous rupture membranes earlier that evening. Due to her GBS positive status, she received intravenous Pitocin for GBS prophylaxis and labor progressed spontaneously into the active phase. Due to hypotonic uterine dysfunction, Pitocin augmentation was initiated mid day on 01/06/2023 and patient progressed to the 2nd stage of labor. Unfortunately the patient did not make any progress whatsoever with over 2 hours pushing and simultaneously the infant began to have deep variables with each contraction and progressively significant tachycardia. Due to the patient's lack of progress in the 2nd stage associated with the fact that the estimated weight by ultrasound was slightly less than 10 lb, and progressive intolerance of labor, the decision was made to proceed instead with primary section for the combined indications above. On the evening of 01/06/2023 she underwent a primary section which was productive of a viable female Apgars of 9/9, with a weight of 3910 g (8 lb 9.9 oz). Cord blood pH studies were also normal. Following delivery both mother and baby have done extremely well with the mother experiencing prompt return of bowel and bladder function, she is ambulating independently, tolerating regular diet, and her pain is well controlled with oral pain medications. She will be discharged at this time in an afebrile normotensive condition following counseling regarding precautionary symptoms, limitations activity, medications, and plans for follow-up which will be in 1 week. Discharge medications will include resumption of all pre admission medications, oxycodone 5 mg p.o. Q 4-6 hours as needed pain, dispense 20 with no refills, ibuprofen 600 mg p.o. q.6 hours as needed pain, dispensed 60 with 2 refills, and Colace 100 mg p.o. b.i.d., dispensed 60 with 2 refills. Peripartum Data Infant Delivery Method: Section Laceration Description: None Episiotomy description: None complications: none Status at Discharge Cognitive/behavioral status at discharge: oriented Functional status at discharge: independent ambulation Overall status at discharge: patient is progressing back to baseline Time Spent with Patient Time attestation: Total time spent providing and/or coordinating discharge services: Time spent: Less than 30 minutes Objective Labs 01/07/23 06:19 Exam Vital Signs (past 8 hours): Oxygen Delivery Method Room Air Const General: cooperative and comfortable Nutritional Appearance: average body habitus Orientation: alert and oriented x3 HENMT Head: normal to inspection, atraumatic and abrasion Ears: hearing grossly normal bilaterally Face and sinus: face symmetric Eyes General: appearance normal, both eyes and all related structures Conjunctivae: conjunctivae normal Sclera: sclerae normal EOM: EOM intact bilaterally Neck Neck: normal visual inspection Resp Effort & Inspection: normal respiratory effort and able to speak in complete sentences Auscultation: clear to auscultation bilaterally Cardio Rate: regular rate Rhythm: regular rhythm Heart Sounds: S1 normal, S2 normal and no murmurs GI Inspection: normal to inspection and incision (Surgical dressing clean and dry) Palpation: soft, no hepatosplenomegaly, mass (Firm, mildly tender fundus, U -4) and tender (Mild, diffuse postsurgical tenderness) External Female Exam: other (No significant bleeding noted) Extrem General: no calf tenderness Psych Appearance: grossly normal Mental Status: mental status grossly normal Speech and Movement: speech and movement normal Mood: congruent mood Affect: normal affect Attitude: cooperative Thought Process: normal Thought Content: normal Judgment: judgment good Discharge Plan Discharge Plan Patient Disposition: Home Provider Discharge Comment: Please review the written instructions you received when you were discharged from the hospital. Your follow-up appointment will be scheduled for 1 week after delivery and I look forward to seeing you then. If however in the meanwhile you have any issues, concerns, questions, please contact me either through the office phone at [phone], or via the patient portal. Call with fever, chills, redness or drainage around the incision or bleeding vaginally more than a pad in an hour Discharge orders & Medications Prescriptions: New docusate sodium 100 mg Capsule 100 mg PO BID Qty: 60 2RF ibuprofen 600 mg Tablet 600 mg PO Q6H Qty: 60 2RF oxycodone 5 mg Tablet 5 mg PO Q4H PRN (Reason: Pain, Moderate (4-6)) Qty: 20 0RF Continued prenat.vits,nita,ahn-togd-hsjra Tablet 1 tab PO DAILY Follow up/Referrals: Abhijit Lincoln MD [Physician] - 6 Weeks (Follow up appointment with Dr. Lincoln January 14, 2023 at 11:15am and 6 week appointment February 18, 2023 at 1:00pm. ) Discharge Health Status Multidrug resistant organism: No MDRO Diet/Activity/Treatments Diet: Diet as Tolerated Activity: As tolerated Other treatments: Rqkr-viz-ibqojgq Tylenol and/or ibuprofen may used for additional pain relief. Jmpr-pfv-gskdmvd stool softeners and/or MiraLax may be used for constipation as needed. Skin/Wound/Dressing Care Report to your healthcare provider any signs of infection, such as:: chills, fever, increased pain, unusual drainage and unusual redness Dressing: Do not remove Visit Report/Discharge Packet Instructions: DI for , DI for and Nipple Soreness, DI for Prescription Opioid Use Stand Alone Forms: Patient Portal/API, Stroke Signs & Symptoms Discharge Data Primary Care Provider: Juan Manuel Alexandra Discharges patient from system. Discharge Date/Time: 01/08/23 15:30
[2023-01-08] MEDS: PRENATAL VIT,CALC/IRON/FOLIC 1 TABLET 1 TAB PO (09:59)
[2023-01-08] MEDS: MEASLES,MUMPS,RUBELLA VACC/PF 0.5 ML VIAL SUBCUT (14:22)
== END 2023-01-08 15:30 | disposition home or self-care (01) | DRG 788 ==
PROVIDERS: Obstetrics & Gynecology; Admitting Provider Family Medicine; PCP Student in an Organized Health Care Education/Training Program; Referring Provider Family Medicine; Visit Provider Obstetrics & Gynecology
PROC: 10D00Z1 Extraction of Products of Conception, Low, Open Approach (ICD-10-PCS; CPT 59514; principal; 2023-01-06 19:00)
DX: O62.1 Secondary uterine inertia (principal); Z3A.39 39 weeks gestation of pregnancy; Z37.0 Single live birth; O99.824 Streptococcus B carrier state complicating childbirth; O76 Abnormality in fetal heart rate and rhythm complicating labor and delivery; O66.2 Obstructed labor due to unusually large fetus
CPT/HCPCS: 36415; 59050; 59510; 59514; 85025; 86850; 86900; 86901; G0379; J0290; J0690; J1885; J2274; J2405; J2590; J2765; J3010